=== PATIENT | female | born 1955 | race Caucasian/White ===

== ENCOUNTER 2018-09-28 12:13 | Day surgery (SDC) | payer BC ==
[~2018-09-28 12:13] MED LIST: Buffered Lidocaine 0.9% SYRIN* 5 ML/SYR SYRINGE INTRADERM ONE; Lactated Ringers 1000 ML Bag* 1,000 ML IV SCH
[2018-09-28] MEDS ORDERED: ceFAZolin 2 GM PREMIX in ORs 2 GM/50 ML BAG IVPB ONE (12:37)
[2018-09-28] MEDS ORDERED: Artificial Tear OPHTH.OINT* 3.5 GM ONE (13:07)
[2018-09-28] MEDS ORDERED: Mineral Oil Sterile, TOPICAL* 25 ML BTL ONE (13:08)
[2018-09-28] MEDS ORDERED: Bupivacaine 0.25% SDV PF* 10 ML VIAL INJ ONE (13:08)
[2018-09-28] MEDS ORDERED: BSS OPTH.SOL* BTL ONE (13:08)
[2018-09-28] MEDS ORDERED: Lidocain 1% EPI 1:100,000 * 30 ML MDV ONE (13:08)
[2018-09-28] MEDS ORDERED: Bacitracin OINTMENT* 0.5% 0.5 oz TUBE ONE (13:09)
[2018-09-28] MEDS ORDERED: Midazolam* 1 MG/ML 5 ML VIAL (5 MG) ONE (13:36)
[2018-09-28] MEDS ORDERED: fentaNYL* 50 MCG/ML 2 ML VIAL (100 MCG VIAL) ONE (13:36)
[2018-09-28] MEDS ORDERED: Propofol* 10 MG/ML 20 ML BTL ONE ×2 (13:39→14:36)
[2018-09-28] MEDS ORDERED: Lidocaine 2% PF * 5 ML VIAL ONE (13:39)
[2018-09-28] MEDS ORDERED: Naloxone* 0.4 MG/ML 1 ML VIAL IV PRN (14:40)
[2018-09-28 16:14] VITALS: BP 107/51
== END 2018-09-28 15:50 | disposition home or self-care (01) ==
LOC: OR 12:13
PROVIDERS: ATTEND Plastic Surgery
DX: C44.1192 Basal cell carcinoma of skin of left lower eyelid, including canthus (principal); Z85.820 Personal history of malignant melanoma of skin; Z86.718 Personal history of other venous thrombosis and embolism; M19.90 Unspecified osteoarthritis, unspecified site
CPT/HCPCS: 88305; 88331; 88332; A9270-GY; J0690; J2250; J2704; J3010; J3490

== ENCOUNTER 2024-10-05 09:14 | Observation (INO) ==
[~2024-10-05 09:14] MED LIST changes: -Buffered Lidocaine 0.9% SYRIN* 5 ML/SYR SYRINGE INTRADERM ONE; -Lactated Ringers 1000 ML Bag* 1,000 ML IV SCH; +NS 0.45% 1000 ml BAG 1,000 ML IV SCH; +Naloxone 0.4 mg VIAL 0.4 mg/ml 1 ml VIAL IV PRN; +Ondansetron 4 mg VIAL 2 MG/ML 2 ml VIAL IV PRN; +fentaNYL 100 mcg/2 ml 50 MCG/ML VIAL IV PRN
[2024-10-05] MEDS ORDERED: Propofol 10 MG/ML 20 ML BTL ONE (09:34)
[2024-10-05] MEDS ORDERED: Lidocaine 2% PF 5 ML VIAL ONE (09:34)
[2024-10-05] MEDS ORDERED: KETAMINE HCL 10 MG/ML 20 ml VIAL (200 MG) ONE (09:34)
[2024-10-05 09:57] LABS: Rapid COVID-19 Molecular Undetected (Undetected)
[2024-10-05] MEDS: Buffered Lidocaine 1% SYRIN 1 ml INTRADERM ONE (10:09)
[2024-10-05] MEDS ORDERED: ceFAZolin 2 GM PREMIX 2 GM/50 ML BAG ONE (10:20)
[2024-10-05] MEDS ORDERED: Tranexamic Acid 1 GM/100ML BAG 2,000 MG/200 ML BAG IV ONE (10:24)
[2024-10-05] MEDS: Lactated Ringers 1000 ml BAG 1,000 ML IV SCH ×2 (10:39→16:19)
[2024-10-05] MEDS ORDERED: Midazolam 2 mg/2 ml VIAL 1 mg/ml 2 ml VIAL (2 mg) ONE ×2 (11:11→12:26)
[2024-10-05] MEDS ORDERED: ROPIVACAINE 5 MG/ML 30 ML BTL (0.5%) ONE ×2 (11:11→11:30)
[2024-10-05] MEDS ORDERED: fentaNYL 100 mcg/2 ml 50 MCG/ML VIAL ONE (11:11)
[2024-10-05] MEDS ORDERED: Famotidine IV 10 MG/ML 2 ml VIAL (20 mg) ONE (11:11)
[2024-10-05] MEDS ORDERED: Dexamethasone IV 4 MG/ML VIAL 1 ml VIAL ONE ×2 (11:11→13:29)
[2024-10-05] MEDS ORDERED: Ondansetron ODT 4 mg TAB 4 MG TAB PO PRN (12:55)
[2024-10-05] MEDS ORDERED: Magnesium Hydroxide LIQ 30 ML UDC PO PRN (12:55)
[2024-10-05] MEDS ORDERED: Morphine 2 MG/ML SYRINGE IV PRN (12:55)
[2024-10-05] MEDS ORDERED: Ondansetron 4 mg VIAL 2 MG/ML 2 ml VIAL IV PRN (12:55)
[2024-10-05] MEDS ORDERED: Lactulose 30 ml UDC PO PRN (12:55)
[2024-10-05] MEDS ORDERED: Calcium Carb (TUMS) 500 mg CHEW TAB PO PRN (12:55)
[2024-10-05] MEDS ORDERED: Glycopyrrolate IV 0.2 MG/ML 1 ML VIAL ONE (13:00)
[2024-10-05] MEDS ORDERED: Ondansetron 4 mg VIAL 2 MG/ML 2 ml VIAL ONE (13:29)
[2024-10-05] MEDS: Acetaminophen IV 1 GM/100ML 1,000 MG/100 ML BAG IV ONE (17:18)
[2024-10-05] MEDS: ceFAZolin 2 GM PREMIX 2 GM/50 ML BAG IV SCH (20:01)
[2024-10-05] MEDS: Magnesium Hydroxide LIQ 30 ML UDC PO SCH (20:34)
[2024-10-06 06:14] LABS: Hemoglobin 11.1 g/dL (11.5-14.3); Mean Platelet Volume 7.6 fL (7.5-11.2); Platelet Count 252 10^3/uL (150-450)
[2024-10-06 06:23] LABS: Calcium 8.6 mg/dL (8.6-10.3); Creatinine, Serum 0.7 mg/dL (0.51-0.95); Potassium 4.4 mmol/L (3.5-5.0); eGFR CKD-EPI 93.6 (>60)
[2024-10-06] MEDS: Vitamin THERAPEUTIC TAB PO SCH (08:52)
[2024-10-06 14:50] VITALS: BP 129/60
== END 2024-10-06 14:50 | disposition home or self-care (01) ==
LOC: SSU 09:14 → OR 09:14
PROVIDERS: ADMIT Orthopaedic Surgery Adult Reconstructive Orthopaedic Surgery; ATTEND Orthopaedic Surgery Adult Reconstructive Orthopaedic Surgery

== ENCOUNTER 2024-10-23 11:44 | Observation (INO) ==
[2024-10-23 12:43] LABS: ABS Basophils 0.1 10^3/uL (0.0-0.1); ABS Eosinophils 0.1 10^3/uL (0.0-0.5); Eosinophil % 0.8 %; Hematocrit 32.9 % (35-45); Hemoglobin 11.1 g/dL (11.5-14.3); Lymphocyte % 19.4 %; Mean Corpuscular Hemoglobin 30.6 pg (27-33); Mean Corpuscular Hgb Conc 33.8 g/dL (31-36); Mean Corpuscular Volume 90.5 fL (80-97); Mean Platelet Volume 6.9 fL (7.5-11.2); Platelet Count 341 10^3/uL (150-450); Red Blood Count 3.63 10^6/uL (3.63-4.92); Red Cell Distribution Width 12.3 % (12-17); White Blood Count 10.1 10^3/uL (3.8-11.8)
[2024-10-23 13:01] LABS: Albumin 4.1 g/dL (3.5-5.7); Albumin/Globulin Ratio 1.2 (1-3); Calcium 9.2 mg/dL (8.6-10.3); Creatinine, Serum 0.62 mg/dL (0.51-0.95); Globulin 3.3 g/dL (2-4); Potassium 4.3 mmol/L (3.5-5.0); Total Bilirubin 0.6 mg/dL (0.2-1.0); Total Protein 7.4 g/dL (6.4-8.9); eGFR CKD-EPI 96.3 (>60)
[2024-10-23 14:04] LABS: INR 1.44 (0.85-1.14)
[2024-10-23 14:13] LABS: High Sensitivity Troponin 1 Hr 3 pg/mL (<15)
[2024-10-23] MEDS: Iohexol 350 (CONTRAST) 500 ML MDV IV ONE (14:27)
[2024-10-23] MEDS ORDERED: Heparin 5000 UNITS/ML 1 mL VIAL IV SCH (16:00)
[2024-10-23] MEDS ORDERED: Polyethylene Glycol 3350 17 GM PACKET PO PRN (16:05)
[2024-10-23] MEDS ORDERED: Senna TAB 8.6 mg TAB PO PRN (16:05)
[2024-10-23] MEDS ORDERED: Sulfur Hexaflouride MICROSPHR 25 MG VIAL IV PRN (16:33)
[2024-10-23] MEDS ORDERED: Enoxaparin 80 MG/0.8 ML SYR SUBCUT SCH (17:00)
[2024-10-23] MEDS: Heparin DRIP 25,000 UNITS BAG 25,000 UNITS/250 ML BAG IV SCH (17:00)
[2024-10-24 09:35] VITALS: BP 120/50
== END 2024-10-24 14:45 | disposition home or self-care (01) ==
LOC: ED 11:44 → EDHOLD 11:44 → MED 18:13
PROVIDERS: ADMIT Internal Medicine; ATTEND Internal Medicine